=== PATIENT | male | born 1950 | race African-American/Black ===

== ENCOUNTER 2020-08-31 15:58 | Inpatient (IN) | payer OTHER ==
[~2020-08-31] VITALS: Ht 180.3 cm; Wt 90.7 kg
[2020-08-31] MEDS ORDERED: METF-440 PO (16:30)
[2020-08-31] MEDS ORDERED: TAMS-12 PO (16:30)
[2020-08-31] MEDS ORDERED: DILT120C93 PO (16:30)
[2020-08-31] MEDS ORDERED: FAMO40TA7 PO (16:30)
[2020-08-31 16:56] VITALS: BP 155/88
[2020-08-31] MEDS ORDERED: BLOOD SUGAR DIAGNOSTIC 1 EACH STRIP IN ONE (17:00)
[2020-08-31] MEDS ORDERED: LORAZEPAM 0.5 MG TABLET PO PRN (17:00)
[2020-08-31] MEDS ORDERED: MAGNESIUM HYDROXIDE 30 ML UDC PO PRN (17:00)
[2020-08-31] MEDS ORDERED: ACETAMINOPHEN 325 MG TABLET PO PRN (17:00)
[2020-08-31] MEDS ORDERED: MAG HYDROX/AL HYDROX/SIMETH 30 ML UDC PO PRN (17:00)
[2020-08-31] MEDS ORDERED: ZOLPIDEM TARTRATE 5 MG TABLET PO PRN (17:00)
--- NOTE | 2020-08-31 17:00 | NUR ---
[id number] ADMITTED A 70 Y.O PATIENT. PATIENT WAS A DIRECT ADMIT FROM [facility]. PATIENT ON 5150 FOR DTO. UPON FACE TO FACE ASSESSMENT PATIENT VERBALIZED THAT HE IS DEPRESSED BECAUSE HE LOSS EVERYTHING AND THAT HE IS HOMELESS. PATIENT IS A/O X4 AMBULATORY STEADY GAIT. PATIENT DENIES SI/HI AT THIS TIME.PATIENT SIGN ALL ADMISSION PAPERS AND IS VERY COOPERATIVE DURING ADMISSION PROCESS. PATIENT HAD NO FAMILY TO NOTIFY ON THE ADMISSION. DR. RIVERA ( PSYCHIATRIST) AND ERAN JOHNSTON ( CHEMICAL STRENGTH TESTER) WAS BOTH MADE AWARE WITH THE ADMISSION. PATIENT'S RIGHT BOOKLET WAS GIVEN TO THE PATIENT. PATIENT WAS ORIENTED IN THE UNIT AND UNIT POLICIES. MRSA AND CONTRABAND DONE. FULL BODY ASSESSMENT ALSO DONE. WILL ENDORSE TO INCOMING NURSE FOR CONTINUITY OF CARE AND ADMISSION PROCESS.
[2020-08-31 20:00] VITALS: BP 151/78
[2020-08-31 20:10] VITALS: BP 157/78
[2020-08-31] MEDS: TAMSULOSIN 0.4 MG CAP.SR.24H PO SCH (21:15)
[2020-09-01 06:46] LABS: CHOLESTEROL 154 mg/dL (<200); HDL CHOLESTEROL 45 mg/dL (40-60); LDL 85 mg/dL (0-99); TRIGLYCERIDES 93 mg/dL (30-150)
[2020-09-01 06:50] LABS: ALBUMIN 2.9 g/dL (3.4-5.0); BILIRUBIN,TOTAL 0.6 mg/dL (0.2-1.0); CALCIUM, SERUM 8.7 mg/dL (8.5-10.1); CREATININE 0.7 mg/dL (0.6-1.3); POTASSIUM 4.1 mmol/L (3.5-5.1); TOTAL PROTEIN, SERUM 7.4 g/dL (6.4-8.2)
[2020-09-01 08:00] VITALS: BP 131/83
[2020-09-01] MEDS: DILTIAZEM HCL CD 120 MG PO SCH (08:39)
[2020-09-01] MEDS: FAMOTIDINE (20 MG) 20 MG TABLET PO SCH (08:39)
[2020-09-01] MEDS: METFORMIN 500 MG TABLET PO SCH ×2 (08:39→16:38)
--- NOTE | 2020-09-01 14:26 | NUR ---
Point of Contact: Pt does not have anyone for the SW to contact.
--- NOTE | 2020-09-01 15:26 | NUR ---
Initial Discharge Plan: Pt is homeless and is requesting placement. SW will work with the pt and the MD regarding appropriate discharge planning. SW will form a safe and proper discharge plan.
[2020-09-01 15:58] VITALS: BP 130/80
[2020-09-01 20:05] VITALS: BP 156/96
[2020-09-01 20:19] VITALS: BP 156/96
[2020-09-01 21:15] VITALS: BP 141/83
[2020-09-01] MEDS: QUETIAPINE FUMARATE 25 MG TABLET PO SCH (21:19)
[2020-09-01] MEDS: TAMSULOSIN 0.4 MG CAP.SR.24H PO SCH (21:19)
--- NOTE | 2020-09-02 07:00 | NUR ---
RN NOTE PATIENT SLEPT WELL AT NIGHT, NO BEHAVIOR EPISODES NOTED.
[2020-09-02 08:00] VITALS: BP 155/69
[2020-09-02] MEDS: FAMOTIDINE (20 MG) 20 MG TABLET PO SCH (08:28)
[2020-09-02] MEDS: DILTIAZEM HCL CD 120 MG PO SCH (08:28)
[2020-09-02] MEDS: METFORMIN 500 MG TABLET PO SCH ×2 (08:29→16:58)
[2020-09-02] MEDS: ESCITALOPRAM OXALATE (10 MG) 10 MG TABLET PO SCH (08:58)
[2020-09-02 16:00] VITALS: BP 127/67
[2020-09-02 19:40] VITALS: BP 142/76
[2020-09-02 19:46] VITALS: BP 142/76
[2020-09-02] MEDS: TAMSULOSIN 0.4 MG CAP.SR.24H PO SCH (21:04)
[2020-09-02] MEDS: QUETIAPINE FUMARATE 25 MG TABLET PO SCH (21:10)
--- NOTE | 2020-09-02 23:38 | NUR ---
RN NOTE PATIENT IS SLEEPING COMFORTABLY, NO BEHAVIOR EPISODES NOTED, PT. IS COOPERATIVE WITH PLAN OF CARE.
[2020-09-03 08:00] VITALS: BP 133/76
[2020-09-03] MEDS: FAMOTIDINE (20 MG) 20 MG TABLET PO SCH (08:03)
[2020-09-03] MEDS: METFORMIN 500 MG TABLET PO SCH ×2 (08:04→17:03)
[2020-09-03] MEDS: ESCITALOPRAM OXALATE (10 MG) 10 MG TABLET PO SCH (08:04)
[2020-09-03] MEDS: DILTIAZEM HCL CD 120 MG PO SCH (08:04)
[2020-09-03 16:07] VITALS: BP 129/73
[2020-09-03 20:45] VITALS: BP 132/72
[2020-09-03 20:49] VITALS: BP 132/72
[2020-09-03] MEDS: QUETIAPINE FUMARATE 25 MG TABLET PO SCH (21:18)
[2020-09-03] MEDS: TAMSULOSIN 0.4 MG CAP.SR.24H PO SCH (21:18)
--- NOTE | 2020-09-03 22:18 | NUR ---
GPS RN NOTE - INSOMNIA PATIENT C/O DIFFICULTY FALLING ASLEEP AND REQUESTED FOR AMBIEN. ADMINISTERED AMBIEN ORDERED. WILL CONTINUE TO ASSESS PATIENT FOR INSOMNIA WITHIN 1 HOUR.
[2020-09-04 08:00] VITALS: BP 133/78
[2020-09-04] MEDS: METFORMIN 500 MG TABLET PO SCH ×2 (08:19→16:47)
[2020-09-04] MEDS: ESCITALOPRAM OXALATE (10 MG) 10 MG TABLET PO SCH (08:19)
[2020-09-04] MEDS: FAMOTIDINE (20 MG) 20 MG TABLET PO SCH (08:20)
[2020-09-04] MEDS: DILTIAZEM HCL CD 120 MG PO SCH (08:20)
[2020-09-04 16:00] VITALS: BP 140/81
[2020-09-04 20:07] VITALS: BP 134/71
[2020-09-04] MEDS: TAMSULOSIN 0.4 MG CAP.SR.24H PO SCH (21:17)
[2020-09-04] MEDS: QUETIAPINE FUMARATE 25 MG TABLET PO SCH (21:17)
[2020-09-05 08:00] VITALS: BP 128/76
[2020-09-05] MEDS: METFORMIN 500 MG TABLET PO SCH ×2 (09:42→17:05)
[2020-09-05] MEDS: FAMOTIDINE (20 MG) 20 MG TABLET PO SCH (09:42)
[2020-09-05] MEDS: DILTIAZEM HCL CD 120 MG PO SCH (09:43)
[2020-09-05] MEDS: ESCITALOPRAM OXALATE (10 MG) 10 MG TABLET PO SCH (09:43)
--- NOTE | 2020-09-05 10:37 | NUR ---
UR Note: ANITHA faxed a clinical to [facility] to the fax number: [phone] AND [phone].
[2020-09-05 16:00] VITALS: BP 132/74
--- NOTE | 2020-09-05 16:19 | NUR ---
UR Note: Barb ([phone]) manager case management from [facility] called the SW and stated that the pts last covered day is today 09/05/20 and that a review is due tomorrow.
--- NOTE | 2020-09-05 18:47 | NUR ---
QUIET,MED COMPLIANT,NO COMPLAINTS OFFERED.
[2020-09-05] MEDS: QUETIAPINE FUMARATE 25 MG TABLET PO SCH (21:09)
[2020-09-05] MEDS: TAMSULOSIN 0.4 MG CAP.SR.24H PO SCH (21:09)
--- NOTE | 2020-09-05 21:09 | NUR ---
GPS-RN NOTES: MEDICATION REFUSAL PATIENT REFUSED SEROQUEL DOSE FOR TONIGHT. EDUCATED PATIENT REGARDING MEDICATION COMPLIANCE PATIENT STATED "NO, I DON'T WANT IT. "IT FEELS ME DIZZY". WILL ENDORSE TO THE DAY SHIFT NURSE TO INFORM MD.
[2020-09-06 08:00] VITALS: BP 138/80
[2020-09-06] MEDS: FAMOTIDINE (20 MG) 20 MG TABLET PO SCH (09:09)
[2020-09-06] MEDS: DILTIAZEM HCL CD 120 MG PO SCH (09:10)
[2020-09-06] MEDS: METFORMIN 500 MG TABLET PO SCH ×2 (09:10→17:41)
[2020-09-06] MEDS: ESCITALOPRAM OXALATE (10 MG) 10 MG TABLET PO SCH (09:11)
--- NOTE | 2020-09-06 11:30 | NUR ---
DR. RIVERA INFORMED THAT PT. REFUSED SEROQUEL LAST NIGHT.
--- NOTE | 2020-09-06 11:50 | NUR ---
UR Note: ANITHA faxed a clinical to [facility] to the fax number: [phone] AND [phone].
--- NOTE | 2020-09-06 11:51 | NUR ---
[facility] Referral: ANITHA faxed a referral to [facility] with attn to Arslan to the fax number: [phone].
[2020-09-06 16:00] VITALS: BP 129/79
--- NOTE | 2020-09-06 18:25 | NUR ---
NO CHG. IN STATUS.
[2020-09-06 20:27] VITALS: BP 141/70
[2020-09-06] MEDS: TAMSULOSIN 0.4 MG CAP.SR.24H PO SCH (21:31)
[2020-09-06] MEDS: QUETIAPINE FUMARATE 25 MG TABLET PO SCH (21:31)
[2020-09-07 08:00] VITALS: BP 108/57
[2020-09-07] MEDS: ESCITALOPRAM OXALATE (10 MG) 10 MG TABLET PO SCH (08:29)
[2020-09-07] MEDS: METFORMIN 500 MG TABLET PO SCH (08:29)
[2020-09-07 08:30] VITALS: BP 108/57
[2020-09-07] MEDS: FAMOTIDINE (20 MG) 20 MG TABLET PO SCH (08:30)
[2020-09-07] MEDS: DILTIAZEM HCL CD 120 MG PO SCH (08:30)
--- NOTE | 2020-09-07 12:45 | NUR ---
Discharge Note: Pt will be discharged to a placement of his own choosing. Pt stated that he will be going back towards the place that he lived at to get the rest of his belongings. Pt states that he is aware of how to get to this location and informed the SW step by step how he would arrive via bus. Pt does not have any family to contact. Pt will be discharged at 2pm and pt will be transported via bus as the pt is aware of which buses to take and what stops he should get off on. Upon discharge, the pt appears to be in a euthymic mood and presented with a distressed affect. Pt denies both suicidal and homicidal ideation as well as auditory and visual hallucinations. Pt was provided with homeless resources such as shelters, food edge, showers, hot meals, health clinics, mental health clinics and substance abuse referrals. SW provided patient with the [phone] [facility] Longterm Program list. SW provided patient with a copy of the [facility] homeless directory which provides information on locations for hot meals, sack lunches, food pantries, and showers. SW provided an additional list of mental health clinics: [facility] [address] [place] [address] ([phone]); [facility] [address] [place] [address] ([phone]); a list of medical clinics; [facility] [address], [place]. [place], ; [facility] [address], [address], [place]. ANITHA Provided [facility] [address] [place] [address]: ([phone]). Patient was provided with a brief substance abuse intervention and referred to the following substance abuse programs: [facility] Substance Abuse Self-helpline ([phone]); [facility] [address] [place] [address] ([phone]); [facility] [address] [facility] [address] ([phone]); [facility] ([phone]); [facility] ([phone]); [facility] ([phone]); [facility] ([phone]). Pt was referred to [facility] [place] at [address] [place] [address]; ; fax was sent to: , for psychiatric services. Pt was also referred to [facility] located at [address], [place]; ; for medical services. Pt signed the homeless waiver and the multidisciplinary exit care form was done, printed, signed, and given to the patient.
--- NOTE | 2020-09-07 13:10 | NUR ---
RN-DISCHARGE NOTES DR. RIVERA GAVE T.O DISCHARGE ORDER. PATIENT WAS DISCHARGE WITH HIS OWN PLAN.PATIENT LEFT THE UNIT IN STABLE CONDITION A/O X4 AMBULATORY WITH STEADY GAIT. DISCHARGE MEDICATIONS WAS REVIEWED WITH THE PATIENT WITH UNDERSTANDING.PATIENT DID NOT VERBALIZE SI/HI,DENIES VISUAL/AUDITORY HALLUCINATIONS AT THE TIME OF DISCHARGE. PATIENT INSTRUCTED TO CALL 911 OR GO TO THE NEAREST EMERGENCY FACILITY IN CASE OF EMERGENCY.OFFERED FLU AND PNA VACCINE BUT PATIENT REFUSED. PATIENT WAS ACCOMPANIED BY ONE SENIOR SCHEDULER STAFF IN THE LOBBY FOR SAFETY.NO FAMILY TO NOTIFY ON THE DISCHARGE.ALL BELONGINGS WAS GIVEN BACK TO THE PATIENT INCLUDING RX. MASK WAS PROVIDED.
== END 2020-09-07 13:10 | disposition home or self-care (01) | DRG 885 ==
LOC: GPS 15:58
PROVIDERS: ADMIT Psychiatry & Neurology Psychiatry; ATTEND Registered Nurse
DX: F32.3 Major depressive disorder, single episode, severe with psychotic features (principal); E44.0 Moderate protein-calorie malnutrition; E11.9 Type 2 diabetes mellitus without complications; I25.10 Atherosclerotic heart disease of native coronary artery without angina pectoris; I10 Essential (primary) hypertension; Z59.0 Homelessness; H40.9 Unspecified glaucoma; G47.9 Sleep disorder, unspecified
CPT/HCPCS: 36415; 80053-TC; 80061-TC; 82962-TC; 87081-TC